=== PATIENT | female | born 1990 | race Caucasian/White ===

== ENCOUNTER 2018-04-24 11:54 | Outpatient (CLI) | payer OTHER ==
[~2018-04-24 11:54] MED LIST: ANTIVERT25 M1 PO; CIPRO500 MG PO; KETO10TA2 PO; SEPTRA DS TABLE1 TAB PO
== END 2018-04-24 11:55 | disposition home or self-care (01) ==
LOC: LAB 11:54
DX: Z51.81 Encounter for therapeutic drug level monitoring (principal)

== ENCOUNTER 2018-05-01 12:20 | Outpatient (CLI) | payer OTHER | END 2018-05-01 12:34 | disposition home or self-care (01) | LOC: RAD 12:20 | DX: Q33.2 Sequestration of lung (principal) ==

== ENCOUNTER 2018-08-24 21:36 | Emergency (ER) | payer OTHER ==
[~2018-08-24] VITALS: Ht 165.1 cm; Wt 111.6 kg
[2018-08-25] MEDS ORDERED: CIPRO500 MG PO (04:32)
== END 2018-08-25 04:37 | disposition home or self-care (01) ==
LOC: ER 21:36
DX: N39.0 Urinary tract infection, site not specified (principal); K60.0 Acute anal fissure; R31.29 Other microscopic hematuria